=== PATIENT | female | born 1945 | race Caucasian/White ===

== ENCOUNTER 2022-12-02 12:53 | Observation (INO) ==
[2022-12-02 13:12] VITALS: BMI 21.1
--- NOTE | 2022-12-02 13:34 | DR.URINEF ---
HPI Time Seen Time Seen by Provider: 12/02/22 13:23 PCP Primary Care Physician: Marizol Russo Complaint Chief Complaint Doctors Comments: 77 y/o female presents for evaluation. Having severe weakness this am. Had difficulty using her walking this am, going sided to side. + weak, fell. Injured left ankle. + pain with moving, better with rest. Has had urinary difficulties past few days. + dysuria, frequency, odor and urgency. Denies fever, cough, URI symptoms. No bowel issues. Chief Complaint:: Patient states she felt to weak to get out of bed this am and then once up used walker and culdnt hardly walk secndary weakness. Patient has been battling urinary issues such as burning, foul smelling urine, and weakness for 5 days. Taking AZO, has pain to left ankle post fall COVID-19 Coronavirus risk:travel/contact w/high risk person: No Has patient experienced Coronavirus symptoms: No Reviewed Nurses Notes Reviewed: Yes Source History Provided: Patient and Family Member Mode of Arrival Mode of Arrival: Wheelchair Timing Onset of Chief Complaint: 12/02/22 PMH PMH Past Medical History: Yes Past Medical History: Hypertension and Hypothyroidism Past Medical History Comment: breast Cancer Past Surgical History: Yes Surgical History: Hysterectomy, Mastectomy and Ortho Surgery Past Surgical History Comment: Cataract Family History History of Family Medical Conditions: Yes Family Medical History: Cancer, Coronary Artery Disease, Sudden Cardiac and Hypertension Social History Does patient currently use any type of tobacco product: No Have you used tobacco products in the last 12 months: No Type of Tobacco Use: None Does any household member use tobacco: No Alcohol Use: None Do you use any recreational Drugs:: No Lives With: Alone Lives Where: Home Travel Risk Coronavirus risk:travel/contact w/high risk person: No Has patient experienced Coronavirus symptoms: No Infectious screening In the last 2 months have you had wt loss of >10#?: NO Have you traveled outside the country in the last 6 months?: No Isolation: Standard ROS Review of Systems Constitutional: Malaise and Weakness Eyes: No Symptoms Reported ENTM: No Symptoms Reported Respiratoy: No Symptoms Reported Cardiovascular: No Symptoms Reported Gastrointestinal/Abdominal: No Symptoms Reported Genitourinary: Dysuria and Frequency Neurological: Weakness Musculoskeletal: Ankle Integumentary: No Symptoms Reported Psychiatric: No Symptoms Reported All Other Systems: Reviewed and Negative PE Vital Signs Vitals: Temperature 97.8 F Pulse Rate 63 Respiratory Rate 16 Blood Pressure [Right Arm] 100/58 Blood Pressure 119/60 O2 Sat by Pulse Oximetry 99 General General Appearance: Alert and In No Apparent Distress Head Head Exam: Normal Inspection Eyes Eye exam: PERRL, EOMI and Other (+ pale palpebral conjunctivae) ENT ENT Exam: Normal Exam and Mucous Membranes Moist Neck Neck Exam: Normal Inspection Respiratory Respiratory Exam: Normal Lung Sounds Bilat; negative Accessory Muscle Use or Respiratory Distress Cardiovascular Cardiovascular Exam: Regular Rate, Normal Rhythm and Normal Heart Sounds Extremities Extremities Exam: Edema (1-2+, bilaterally) Neurologic Neurological Exam: Alert, Oriented X3 and CN II-XII Intact; negative Motor Sensory Deficit Skin Skin Exam: Warm, Dry and Other (+ chronic stasis dermatitis of bilateral lower exts.) Other Exam Other Exam: L ankle - + mild soft tissue swelling. No bony tenderness. + pain with dorsiflexion of ankle. COURSE Treatment Treatment: 77 y/o female with weakness today. Sounds like has had UTI for the past few days. W/u initiated. Given IV fluids. 1547 - U/A with TNTC WBCs/RBCs, labs otherwise acceptable. No obvious fracture on left ankle x-ray. + acute UTI, with 2nd weakness. Given IV Rocephin. Discussed with Dr Jamil, covering, will admit. ROR Labs Reviewed Laboratory Results Reviewed?: Yes Result Diagrams: 12/02/22 14:05 12/02/22 14:05 Laboratory: WBC 10.2 X10^3/uL (3.6-10.0) H 12/02/22 14:05 RBC 4.26 X10^6/uL (3.5-5.4) 12/02/22 14:05 Hgb 12.9 g/dL (12.0-16.0) 12/02/22 14:05 Hct 38.8 % (36.0-47.0) 12/02/22 14:05 MCV 91.1 fL (80.0-100.0) 12/02/22 14:05 MCH 30.4 pg (27.0-34.0) 12/02/22 14:05 MCHC 33.4 g/dL (33.0-35.0) 12/02/22 14:05 RDW 14.2 % (11.6-16.5) 12/02/22 14:05 Plt Count 269 X10^3/uL (150.0-450.0) 12/02/22 14:05 MPV 6.7 fL (7.4-11.0) L 12/02/22 14:05 Neut % (Auto) 78.7 % (42.0-75.0) H 12/02/22 14:05 Lymph % (Auto) 10.6 % (21.0-51.0) L 12/02/22 14:05 [place] % (Auto) 6.1 % (0.0-13.0) 12/02/22 14:05 Eos % (Auto) 3.9 % (0.9-2.9) H 12/02/22 14:05 Baso % (Auto) 0.7 % (0.2-1.0) 12/02/22 14:05 Neut # (Auto) 8.0 x10^3/uL (2.2-4.8) H 12/02/22 14:05 Lymph # (Auto) 1.1 X10^3/uL (1.3-2.9) L 12/02/22 14:05 [place] # (Auto) 0.6 x10^3/uL (0.3-0.8) 12/02/22 14:05 Eos # (Auto) 0.4 x10^3/uL (0.0-0.2) H 12/02/22 14:05 Baso # (Auto) 0.1 X10^3/uL (0.0-0.1) 12/02/22 14:05 Absolute Nucleated RBC 0.1 /100WBC 12/02/22 14:05 Sodium 134 mmol/L (136-145) L 12/02/22 14:05 Corrected Sodium TNP 12/02/22 14:05 Potassium 4.3 mmol/L (3.5-5.1) 12/02/22 14:05 Chloride 101 mmol/L (98-107) 12/02/22 14:05 Carbon Dioxide 25.3 mmol/L (21-32) 12/02/22 14:05 BUN 30 mg/dL (7-18) H 12/02/22 14:05 Creatinine 1.00 mg/dL (0.55-1.02) 12/02/22 14:05 Est GFR (MDRD) Af Amer > 60 (>60) 12/02/22 14:05 Est GFR (MDRD) Non-Af 57 (>60) L 12/02/22 14:05 Glucose 88 mg/dL (65-99) 12/02/22 14:05 Lactic Acid 0.7 mmol/L (0.4-2.0) 12/02/22 14:05 Calcium 9.6 mg/dL (8.5-10.1) 12/02/22 14:05 Corrected Calcium TNP 12/02/22 14:05 Total Bilirubin 0.80 mg/dL (0.2-1.0) 12/02/22 14:05 AST 28 Units/L (15-37) 12/02/22 14:05 ALT 28 Units/L (12-78) 12/02/22 14:05 Alkaline Phosphatase 170 Units/L (46-116) H 12/02/22 14:05 Total Protein 6.1 g/dL (6.4-8.2) L 12/02/22 14:05 Albumin 3.5 g/dL (3.4-5.0) 12/02/22 14:05 Globulin 2.6 g/dL (2.5-4.5) 12/02/22 14:05 Albumin/Globulin Ratio 1.3 Ratio (1.1-2.1) 12/02/22 14:05 Lipase 83 Units/L (73-393) 12/02/22 14:05 Specimen Type Clean catch urine 12/02/22 13:58 Urine Color Dark yellow (YELLOW) 12/02/22 13:58 Urine Appearance Cloudy (CLEAR) 12/02/22 13:58 Urine pH 6.0 (5.0 - 8.0) 12/02/22 13:58 Ur Specific [place] 1.020 (1.000-1.030) 12/02/22 13:58 Urine Protein 3+ (NEGATIVE) 12/02/22 13:58 Urine Glucose (UA) Negative (NEGATIVE) 12/02/22 13:58 Urine Ketones Negative (NEGATIVE) 12/02/22 13:58 Urine Blood 5+ (NEGATIVE) 12/02/22 13:58 Urine Nitrite Positive (NEGATIVE) 12/02/22 13:58 Urine Bilirubin Negative (NEGATIVE) 12/02/22 13:58 Urine Urobilinogen 1+ (NORMAL) 12/02/22 13:58 Ur Leukocyte Esterase 3+ (NEGATIVE) 12/02/22 13:58 Urine RBC Tntc /HPF (0-3) A 12/02/22 13:58 Urine WBC Tntc /HPF (0-5) A 12/02/22 13:58 Ur Squamous Epith Cells Rare /HPF (NEGATIVE) 12/02/22 13:58 Urine Bacteria 4+ /HPF (NEGATIVE) 12/02/22 13:58 Ur Culture Indicated? Yes/culture set up 12/02/22 13:58 + UTI XRAY XRAY Interpreted by: Both X-ray Results: No obvious acute abnormalities on left ankle/CXR. Opioid Opioid Risk Tool Age (Eze box if 16-45): No History of Preadolescent Sexual Abuse: No Total: 0 Total Score Risk Category: Low Risk Copyright: N[employer] predicting aberrant behaviors Discharge Plan Diagnosis Discharge Problem: Acute lower UTI, Generalized weakness Discharge Plan Patient Disposition: 09 ADMITTED INPATIENT Condition: Stable Orders to Discharge Patient Discharge Orders: Transfer (Routine); Ordered 12/02/22 Ordered By: Rafael Cano
[2022-12-02] MEDS ORDERED: NS 500 ML IV 500 ML IV ONE ×2 (13:42→13:45)
[2022-12-02 14:05] LABS: BILIRUBIN,URINE NEGATIVE (NEGATIVE); BLOOD/HEMOGLOBIN,URINE 5+ (NEGATIVE); GLUCOSE, URINE NEGATIVE (NEGATIVE); KETONES,URINE NEGATIVE (NEGATIVE); LEUKOCYTE ESTERASE ,URINE 3+ (NEGATIVE); NITRITES,URINE POSITIVE (NEGATIVE); PROTEIN,URINE 3+ (NEGATIVE); UROBILINOGEN,URINE 1+ (NORMAL)
[2022-12-02 14:12] LABS: APPEARANCE,URINE CLOUDY (CLEAR); COLOR,URINE DARK YELLOW (YELLOW)
[2022-12-02 14:13] LABS: BACTERIA,URINE 4+ /HPF (NEGATIVE); RBC,URINE TNTC /HPF (0-3); SQUAMOUS EPITHELIAL CELL,UR RARE /HPF (NEGATIVE)
[2022-12-02] MEDS ORDERED: ROCEPHIN VIAL 1 GRAM 1 G in NS 100 ML IV 100 ML IV ONE (14:15)
[2022-12-02] MEDS ORDERED: NS 100 ML IV 100 ML ONE (14:18)
[2022-12-02] MEDS ORDERED: ROCEPHIN VIAL 1 GRAM ONE (14:18)
[2022-12-02 14:24] LABS: BASOPHILS # (AUTO) 0.1 X10^3/uL (0.0-0.1); BASOPHILS % (AUTO) 0.7 % (0.2-1.0); EOSINOPHILS # (AUTO) 0.4 x10^3/uL (0.0-0.2); EOSINOPHILS % (AUTO) 3.9 % (0.9-2.9); HEMATOCRIT 38.8 % (36.0-47.0); HEMOGLOBIN 12.9 g/dL (12.0-16.0); LYMPHOCYTES # (AUTO) 1.1 X10^3/uL (1.3-2.9); LYMPHOCYTES % (AUTO) 10.6 % (21.0-51.0); MEAN CORPUSCULAR HEMOGLOBIN 30.4 pg (27.0-34.0); MEAN CORPUSCULAR HGB CONC 33.4 g/dL (33.0-35.0); MEAN CORPUSCULAR VOLUME 91.1 fL (80.0-100.0); MEAN PLATELET VOLUME 6.7 fL (7.4-11.0); MONOCYTES # (AUTO) 0.6 x10^3/uL (0.3-0.8); MONOCYTES % (AUTO) 6.1 % (0.0-13.0); NEUTROPHILS % (AUTO) 78.7 % (42.0-75.0); RED BLOOD COUNT 4.26 X10^6/uL (3.5-5.4); RED CELL DISTRIBUTION WIDTH 14.2 % (11.6-16.5); WHITE BLOOD COUNT 10.2 X10^3/uL (3.6-10.0)
[2022-12-02 14:38] LABS: LACTIC ACID 0.7 mmol/L (0.4-2.0)
[2022-12-02 14:46] LABS: ALANINE AMINOTRANSFERASE 28 Units/L (12-78); ALBUMIN 3.5 g/dL (3.4-5.0); ALKALINE PHOSPHATASE 170 Units/L (46-116); ASPARTATE AMINO TRANSFERASE 28 Units/L (15-37); BLOOD UREA NITROGEN 30 mg/dL (7-18); CALCIUM 9.6 mg/dL (8.5-10.1); CARBON DIOXIDE 25.3 mmol/L (21-32); CHLORIDE 101 mmol/L (98-107); LIPASE 83 Units/L (73-393); SODIUM 134 mmol/L (136-145); TOTAL PROTEIN 6.1 g/dL (6.4-8.2); eGFR NON BLACK RACES 57 (>60)
[2022-12-02] MEDS: ROCEPHIN VIAL 1 GRAM 1 G in NS 100 ML IV 100 ML IV SCH (16:47)
[2022-12-02] MEDS: XANAX PO PRN (18:14)
[2022-12-02] MEDS ORDERED: NEURONTIN CAP 300 MG ONE (20:26)
[2022-12-02] MEDS: CRESTOR TAB 10 MG PO SCH (20:28)
[2022-12-02] MEDS: NEURONTIN CAP 300 MG PO SCH (21:30)
[2022-12-02] MEDS ORDERED: VISTARIL PO PRN (22:38)
[2022-12-03] MEDS: XANAX PO PRN (00:46)
--- NOTE | 2022-12-03 04:16 | RAD ---
HISTORYWEAKNESS, FALL LEFT ANKLE PAIN HTN, BREAST CANCER, HYSTER, MASTECTOMY, ORTHO, CATARACTSTUDYCHEST, 1 VIEWCOMPARISONNoneFINDINGSThe trachea is midline. The cardiac silhouette is unremarkable. The lungs are clear without focal infiltrate or effusion. The bony thorax is unremarkable. Small hiatal herniaIMPRESSIONNo acute cardiopulmonary findings .Electronically signed by: Angel Johnson (Dec 03, 2022 04:12:29)
[2022-12-03 05:32] LABS: BASOPHILS # (AUTO) 0.1 X10^3/uL (0.0-0.1); BASOPHILS % (AUTO) 0.8 % (0.2-1.0); EOSINOPHILS # (AUTO) 0.4 x10^3/uL (0.0-0.2); HEMOGLOBIN 11.4 g/dL (12.0-16.0); LYMPHOCYTES # (AUTO) 1.4 X10^3/uL (1.3-2.9); MEAN CORPUSCULAR HEMOGLOBIN 30.7 pg (27.0-34.0); MEAN CORPUSCULAR HGB CONC 34.4 g/dL (33.0-35.0); MEAN CORPUSCULAR VOLUME 89.3 fL (80.0-100.0); MONOCYTES # (AUTO) 0.7 x10^3/uL (0.3-0.8); MONOCYTES % (AUTO) 6.9 % (0.0-13.0); NEUTROPHILS # (AUTO) 7.5 x10^3/uL (2.2-4.8); NEUTROPHILS % (AUTO) 74.3 % (42.0-75.0); RED CELL DISTRIBUTION WIDTH 14.1 % (11.6-16.5); WHITE BLOOD COUNT 10.1 X10^3/uL (3.6-10.0)
[2022-12-03 05:42] LABS: ALANINE AMINOTRANSFERASE 23 Units/L (12-78); ALBUMIN 2.7 g/dL (3.4-5.0); ALKALINE PHOSPHATASE 144 Units/L (46-116); ASPARTATE AMINO TRANSFERASE 26 Units/L (15-37); BLOOD UREA NITROGEN 21 mg/dL (7-18); CALCIUM 8.7 mg/dL (8.5-10.1); CARBON DIOXIDE 24.5 mmol/L (21-32); CHLORIDE 103 mmol/L (98-107); COR CA(FOR HYPOALB) 9.7 mg/dL (8.5-10.1); CREATININE 0.77 mg/dL (0.55-1.02); SODIUM 135 mmol/L (136-145); TOTAL PROTEIN 5.1 g/dL (6.4-8.2); eGFR NON BLACK RACES > 60 (>60)
[2022-12-03] MEDS: NEURONTIN CAP 300 MG PO SCH ×3 (06:42→21:19)
--- NOTE | 2022-12-03 06:43 | RAD ---
HISTORYWEAKNESS, FALL LEFT ANKLE PAIN HTN, BREAST CANCER, HYSTER, MASTECTOMY, ORTHO, CATARACTSTUDYANKLE, LEFTCOMPARISONNoneFINDINGSNo acute cortical disruption or dislocation can be identified. Generalized osteopenia. The ankle mortise remains well aligned. No significant soft tissue swelling or injury can be seen. The visualized portions of the talus and calcaneus are unremarkable. Plantar calcaneal osteophyte.IMPRESSIONGeneralized osteopenia.No acute bony abnormalityElectronically signed by: Angel Johnson (Dec 03, 2022 06:42:07)
[2022-12-03] MEDS ORDERED: OLMESARTAN HYDROCHLOROTHIAZIDE PO SCH (09:00)
[2022-12-03] MEDS ORDERED: NS 250 ML IV 250 ML IV ONE (09:16)
[2022-12-03] MEDS: ROCEPHIN VIAL 1 GRAM 1 G in NS 100 ML IV 100 ML IV SCH (09:20)
[2022-12-03] MEDS: BENICAR TAB 40 MG PO SCH (09:22)
[2022-12-03] MEDS: SYNTHROID 50 mcg TAB PO SCH (09:22)
[2022-12-03] MEDS: HYDROCHLOROTHIAZIDE 25 MG TAB PO SCH (09:23)
[2022-12-03] MEDS: LOVENOX INJ 40 MG SYR SC SCH (09:24)
[2022-12-03] MEDS ORDERED: NS 1,000 ML IV 1,000 ML IV SCH (20:00)
[2022-12-03] MEDS: CRESTOR TAB 10 MG PO SCH (21:18)
[2022-12-04] MEDS: XANAX PO PRN (00:32)
[2022-12-04] MEDS: NEURONTIN CAP 300 MG PO SCH (05:16)
[2022-12-04 05:18] LABS: BASOPHILS # (AUTO) 0.1 X10^3/uL (0.0-0.1); BASOPHILS % (AUTO) 0.8 % (0.2-1.0); EOSINOPHILS # (AUTO) 0.4 x10^3/uL (0.0-0.2); EOSINOPHILS % (AUTO) 4.8 % (0.9-2.9); HEMATOCRIT 31.7 % (36.0-47.0); HEMOGLOBIN 10.8 g/dL (12.0-16.0); LYMPHOCYTES # (AUTO) 1.4 X10^3/uL (1.3-2.9); LYMPHOCYTES % (AUTO) 16.9 % (21.0-51.0); MEAN CORPUSCULAR HEMOGLOBIN 30.7 pg (27.0-34.0); MEAN CORPUSCULAR HGB CONC 34.2 g/dL (33.0-35.0); MEAN CORPUSCULAR VOLUME 89.8 fL (80.0-100.0); MEAN PLATELET VOLUME 7.3 fL (7.4-11.0); MONOCYTES # (AUTO) 0.5 x10^3/uL (0.3-0.8); MONOCYTES % (AUTO) 6.7 % (0.0-13.0); NEUTROPHILS # (AUTO) 5.7 x10^3/uL (2.2-4.8); NEUTROPHILS % (AUTO) 70.8 % (42.0-75.0); RED BLOOD COUNT 3.53 X10^6/uL (3.5-5.4); RED CELL DISTRIBUTION WIDTH 14.1 % (11.6-16.5); WHITE BLOOD COUNT 8.1 X10^3/uL (3.6-10.0)
[2022-12-04 05:35] LABS: ALANINE AMINOTRANSFERASE 24 Units/L (12-78); ALBUMIN 2.5 g/dL (3.4-5.0); ALKALINE PHOSPHATASE 153 Units/L (46-116); ASPARTATE AMINO TRANSFERASE 24 Units/L (15-37); BLOOD UREA NITROGEN 21 mg/dL (7-18); CALCIUM 8.5 mg/dL (8.5-10.1); CARBON DIOXIDE 26.4 mmol/L (21-32); CHLORIDE 102 mmol/L (98-107); COR CA(FOR HYPOALB) 9.7 mg/dL (8.5-10.1); CREATININE 0.77 mg/dL (0.55-1.02); SODIUM 135 mmol/L (136-145); TOTAL PROTEIN 4.7 g/dL (6.4-8.2); eGFR NON BLACK RACES > 60 (>60)
[2022-12-04] MEDS ORDERED: ROCEPHIN VIAL 2 GRAMS IM ONE (09:12)
[2022-12-04] MEDS: ROCEPHIN VIAL 1 GRAM 1 G in NS 100 ML IV 100 ML IV SCH (09:15)
[2022-12-04] MEDS: LOVENOX INJ 40 MG SYR SC SCH (09:40)
[2022-12-04] MEDS: HYDROCHLOROTHIAZIDE 25 MG TAB PO SCH (09:40)
[2022-12-04] MEDS: BENICAR TAB 40 MG PO SCH (09:40)
[2022-12-04 13:12] VITALS: BP 90/52
[2022-12-04] MEDS: SYNTHROID 50 mcg TAB PO SCH (13:12)
== END 2022-12-04 12:05 | disposition home or self-care (01) ==
LOC: ICU 12:53 → ER 12:53 → ICU 16:26
PROVIDERS: ADMIT Obstetrics & Gynecology Obstetrics; ATTEND Obstetrics & Gynecology Obstetrics
DX: W18.39XA Other fall on same level, initial encounter; I95.89 Other hypotension; R53.1 Weakness; N39.0 Urinary tract infection, site not specified; M25.572 Pain in left ankle and joints of left foot; I10 Essential (primary) hypertension; E87.6 Hypokalemia; B96.1 Klebsiella pneumoniae [K. pneumoniae] as the cause of diseases classified elsewhere; E86.0 Dehydration; R41.0 Disorientation, unspecified; E03.8 Other specified hypothyroidism; R26.89 Other abnormalities of gait and mobility